=== PATIENT | female | born 1965 | race African-American/Black ===

== ENCOUNTER 2019-06-23 15:28 | Emergency (ER) | payer MEDICARE, MEDICAID ==
[2019-06-23 16:29] LABS: #Basophils 0.1 thou/uL (0.0-0.2); #Eosinphils 0.1 thou/uL (0.0-0.7); #Lymphocytes 3.5 thou/uL (1.20-3.40); #Monocytes 0.5 thou/uL (0.11-0.59); #Neutrophils 5.4 thou/uL (1.40-6.50); %Basophils 0.7 % (0.0-1.0); %Eosinophils 0.7 % (0.0-10.0); %Lymphocytes 36.9 % (21.0-51.0); %Monocytes 4.8 % (0.0-10.0); %Neutrophils 56.8 % (42.0-75.0); Hemoglobin 11.9 g/dL (12.0-16.0); Mean Corpuscular HGB CONC 33.1 g/dL (32.0-36.0); Mean Corpuscular Hemoglobin 27.3 pg (27.0-31.0); Mean Corpuscular Volume 82.4 fL (78.0-98.0); Mean Platelet Volume 8.8 fL (7.4-10.4); Platelet Count 237 thou/uL (130-400); RBC Distribution Width 14.2 % (11.5-14.5); Red Blood Cell (RBC) Count 4.35 mill/uL (4.20-5.40); White Blood Cell (WBC) Count 9.5 thou/uL (4.8-10.8)
[2019-06-23 16:50] LABS: ALT (SGPT) 8 U/L (8-55); AST (SGOT) 15 U/L (5-34); Albumin 3.6 g/dL (3.5-5.0); Alkaline Phosphatase 84 U/L (40-110); Anion Gap 11 mmol/L (10-20); BUN (Urea Nitrogen) 18 mg/dL (9.8-20.1); Bilirubin, Total 0.2 mg/dL (0.2-1.2); Calc. Creatinine Clearance 0 mL/min (70-130); Calcium 8.8 mg/dL (7.8-10.44); Carbon Dioxide 28 mmol/L (22-29); Chloride 105 mmol/L (98-107); Estimated GFR-MDRD 32; Globulin 3.1 g/dL (2.4-3.5); Glucose 99 mg/dL (70-105); Potassium 3.9 mmol/L (3.5-5.1); Protein, Total 6.7 g/dL (6.0-8.3); Sodium 140 mmol/L (136-145)
[2019-06-23] MEDS ORDERED: Ondansetron ODT 4 MG TAB ONE (18:08)
--- NOTE | 2019-06-23 18:31 | RAD ---
RADIOGRAPH CHEST 1 VIEW: DATE: 06/23/2019 HISTORY: 53-year-old female status post syncope. Concern for aspiration. FINDINGS: There are no airspace densities, pulmonary edema, pneumothorax, or cardiomegaly. The lateral costophr enic angles are sharp. IMPRESSION: No acute cardiopulmonary findings.
== END 2019-06-23 19:27 | disposition home or self-care (01) ==
LOC: ERS 15:28 → EEVIPCON 15:28 → ERS 19:27
DX: R55 Syncope and collapse (principal); N18.9 Chronic kidney disease, unspecified; R11.0 Nausea; I50.9 Heart failure, unspecified; K21.9 Gastro-esophageal reflux disease without esophagitis; F41.9 Anxiety disorder, unspecified; F32.9 Major depressive disorder, single episode, unspecified; F17.210 Nicotine dependence, cigarettes, uncomplicated
CPT/HCPCS: 36415; 71045; 80053; 83880; 84443; 84484; 85025; 93005; 94760; Q0162

== ENCOUNTER 2019-06-24 10:49 | Observation (INO) | payer MEDICARE, MEDICAID ==
[~2019-06-24 10:49] MED LIST: Iopamidol 370 76% 100 ML VIAL ONE
--- NOTE | 2019-06-24 11:03 | CT ---
Exam: CT brain PROVIDED CLINICAL HISTORY: Difficulty speaking COMPARISON: None FINDINGS: The ventricular system is normal in size and morphology. No evidence for intracranial hemorrhage or mass effect. The extracranial soft tissues and osseous structures demonstrate no evidence for an acute abnormality. IMPRESSION: No evidence for intracranial hemorrhage or mass effect. Findings communicated to Dr. Cruz 11:00 AM .
[2019-06-24 11:21] LABS: #Basophils 0.1 thou/uL (0.0-0.2); #Eosinphils 0.1 thou/uL (0.0-0.7); #Lymphocytes 3.5 thou/uL (1.20-3.40); #Monocytes 0.6 thou/uL (0.11-0.59); #Neutrophils 3.9 thou/uL (1.40-6.50); %Basophils 1.3 % (0.0-1.0); %Eosinophils 1.1 % (0.0-10.0); %Lymphocytes 42.9 % (21.0-51.0); %Monocytes 7.6 % (0.0-10.0); %Neutrophils 47.1 % (42.0-75.0); Hemoglobin 12.8 g/dL (12.0-16.0); Mean Corpuscular HGB CONC 32.3 g/dL (32.0-36.0); Mean Corpuscular Hemoglobin 26.5 pg (27.0-31.0); Mean Platelet Volume 8.8 fL (7.4-10.4); Platelet Count 259 thou/uL (130-400); RBC Distribution Width 14.4 % (11.5-14.5); Red Blood Cell (RBC) Count 4.84 mill/uL (4.20-5.40); White Blood Cell (WBC) Count 8.2 thou/uL (4.8-10.8)
[2019-06-24] MEDS ORDERED: Lorazepam 2 MG/ML VIAL ONE (11:28)
[2019-06-24] MEDS ORDERED: Metoclopramide HCl 10 MG/2 ML VIAL ONE (11:28)
--- NOTE | 2019-06-24 11:30 | CT ---
CT angiogram head CT angiogram neck: 06/24/2019 COMPARISON: None HISTORY: Difficulty speaking TECHNIQUE: Axial CT imaging obtained at 1.25 mm intervals from the lung apices through the vertex wit h IV contrast using CT angiogram protocol. Coronal and sagittal 3-D reformatted imaging obtained. FINDINGS: The imaged lung apices appear unremarkable. The visualized paranasal sinuses/mastoid air cells are well aerated. The retroantral fat and the parapharyngeal fat is clear bilaterally. The parotid glands and the subma ndibular glands are grossly unremarkable. Limited assessment of the aerodigestive tract demonstrates no discrete lesion. The thyroid gland is heterogeneous and mildly enlarged, demonstratin g a nodular internal architecture, not optimally assessed via CT. No lymphadenopathy is noted within the neck. The origin of the innominate artery, right common carotid artery, right subclavian artery, left commo n carotid artery, and left subclavian artery appears unremarkable. Bilateral vertebral artery origins are unremarkable. Bilateral vertebral arteries are unremarkable. On the basis of NASCET criteria, no hemodynamically significant stenosis is noted involving the inter nal carotid artery or common carotid artery on either side. The basilar artery and its branches appear patent. No saccular aneurysm, high-grade stenosis, or vasc ular occlusion is evident within the posterior circulation. The ICA bifurcation, the M1 segment, the A1 segment, the MCA bifurcation, the distal MCA branches, an d the distal SHABBIR branches appear unremarkable bilaterally. No saccular aneurysm, high-grade stenosis, or vascular occlusion is seen involving the anterior circulation on either side. Review of the osseous structures demonstrates mild degenerative change at the atlantoaxial interspace . No worrisome lytic or blastic bone lesion. IMPRESSION: CT angiogram of the head demonstrates no evidence for central intra-arterial thrombus. On the basis of NASCET criteria, no hemodynamically significant stenosis is seen involving the arterial structures of the neck. Results called to Dr. Cruz 11:25 AM 06/24/2019
--- NOTE | 2019-06-24 11:31 | RAD ---
Portable frontal chest radiograph: 06/24/2019 COMPARISON: 06/23/2019 HISTORY: Syncope FINDINGS: No pneumothorax or pleural fluid. No focal consolidation or alveolar edema. A round focal area of prominent increased density overlies the midline lower thoracic spine. A histor y of prior kyphoplasty. IMPRESSION: No radiographic evidence of acute cardiopulmonary disease.
[2019-06-24 11:34] LABS: Acetaminophen Less than 6.0 mcg/mL (10.0-30.0); Alcohol Less than 10 mg/dL (Less than 10); Salicylate Less than 8.0 mg/dL (15.0-30.0)
[2019-06-24 11:40] LABS: ALT (SGPT) 9 U/L (8-55); AST (SGOT) 16 U/L (5-34); Albumin 3.9 g/dL (3.5-5.0); Alkaline Phosphatase 90 U/L (40-110); Anion Gap 14 mmol/L (10-20); BUN (Urea Nitrogen) 20 mg/dL (9.8-20.1); Bilirubin, Total 0.2 mg/dL (0.2-1.2); CK (CPK) 132 U/L (29-168); Calc. Creatinine Clearance 0 mL/min (70-130); Calcium 9.2 mg/dL (7.8-10.44); Carbon Dioxide 33 mmol/L (22-29); Chloride 102 mmol/L (98-107); Estimated GFR-MDRD 30; Globulin 3.3 g/dL (2.4-3.5); Glucose 85 mg/dL (70-105); Lipase 90 U/L (8-78); Potassium 3.6 mmol/L (3.5-5.1); Protein, Total 7.2 g/dL (6.0-8.3); Sodium 145 mmol/L (136-145)
[2019-06-24] MEDS ORDERED: Dexamethasone 10 MG/ML VIAL ONE (12:19)
[2019-06-24 12:37] LABS: Bilirubin Negative (Negative); Blood, Urine Negative (Negative); Clarity Clear (Clear); Glucose, Urine (Dipstick) Normal (Negative); Leukocyte Negative Leu/uL (Negative); Nitrite Negative (Negative); Protein, Urine (Dipstick) Negative (Neg-Trace); Urobilinogen Normal mg/dL (Less than 2)
[2019-06-24 12:46] LABS: Amphetamine Not Detected (NotDetected); Barbiturates Screen Not Detected (NotDetected); Benzodiazepine Screen Not Detected (NotDetected); Cocaine Metabolite Screen Not Detected (NotDetected); Medtox Control Line Valid? VALID (VALID); Medtox Reader # READER 4; Methadone Not Detected (NotDetected); Methamphetamine Not Detected (NotDetected); Opiate Screen Detected (NotDetected); Oxycodone Screen Not Detected (NotDetected); Phencyclidine (PCP) Not Detected (NotDetected); THC/Cannabinoid Screen Not Detected (NotDetected); Tricyclic Screen Not Detected (NotDetected)
[2019-06-24] MEDS ORDERED: Aspirin Chewable 81 MG TAB ONE (13:46)
--- NOTE | 2019-06-24 14:00 | PDOC.FPRHP ---
- History of Present Illness Chief Complaint: stroke-like sxs History of Present Illness: 53yo AAF with h/o migraines, CHF, CKD, anxiety presents for stroke-like sxs. States awoke this morning, unsure of exact time but began to experience a migraine. Pain radiating to the top of her head. This then progressed to vision changes described as a "ball in the left eye field," but could not better describe. She then began to talk to her sister on the phone at approx 0915 and began to experience "full body fatigue" with worsening weakness on the R-side, slurred speech. Came into the ED for eval. Denies any fever/chills, recent illness, n/v, abd pain. After meds in ED, DUGAN resolved. Stroke-like sxs seem to come and go per pt. She also endorses hoarseness that is new. ED Course: ASA, ativan 2mg, reglan 10mg, dexadron 10. Resolution of sxs. - Allergies/Adverse Reactions Allergies Allergy/AdvReac Type Severity Reaction Status Date / Time doxycycline Allergy Verified 06/24/19 15:52 Penicillins Allergy Verified 06/24/19 15:52 - Home Medications Medication Instructions Recorded Confirmed Type ALPRAZolam [Alprazolam] 1 tablet PO BID 06/24/19 06/24/19 History Albuterol Sulfate [Proair HFA] 1 puff PO Q4HR PRN 06/24/19 06/24/19 History Cholecalciferol (Vitamin D3) 1 capsule PO Q7DAYS 06/24/19 06/24/19 History [Vitamin D3] Ferrous Sulfate 7.4 ml PO DAILY 06/24/19 06/24/19 History Furosemide [Lasix] 40 mg PO BID 06/24/19 06/24/19 History Gabapentin 1 capsule PO HS 06/24/19 06/24/19 History Gabapentin [Neurontin] 1 capsule PO HS 06/24/19 06/24/19 History HYDROcodone Bit/APAP 10/325 [[place] 1 tab PO Q6HR PRN 06/24/19 06/24/19 History 10/325] Levothyroxine Sodium 1 tablet PO DAILY 06/24/19 06/24/19 History Linaclotide [Linzess] 1 capsule PO DAILY 06/24/19 06/24/19 History Ondansetron [Zofran ODT] 1 tablet PO Q6HR PRN 06/24/19 06/24/19 History Pantoprazole [Protonix] 40 mg PO BID 06/24/19 06/24/19 History Potassium Chloride 15 ml PO DAILY 06/24/19 06/24/19 History Promethazine HCl/Codeine 1 teaspoon PO BID PRN 06/24/19 06/24/19 History [Prometh-Codein 6.25-10 mg/5 ml] Raloxifene HCl 1 tablet PO DAILY 06/24/19 06/24/19 History Tramadol HCl [Tramadol HCl ER] 300 mg PO DAILY PRN 06/24/19 06/24/19 History Zolpidem Tartrate 10 mg PO HS 06/24/19 06/24/19 History Zolpidem Tartrate [Ambien] 10 mg PO HS 06/24/19 06/24/19 History hydrOXYzine HCl [Hydroxyzine HCl] 1 tablet PO BID 06/24/19 06/24/19 History hydrOXYzine Pamoate [Hydroxyzine 25 mg PO TID PRN 06/24/19 06/24/19 History Pamoate] - History PMHx:CHF, CKDII, GERD, Ovarian/endometrial cancer, anxiety/depression, PNA in Nov, neuropathy PSHx: L rotator cuff, tone, hyst, c/s x4 FHx: Dad - CHF, DMII, CKD. Mom HTN, CVA, [place] Social: 1/2ppd for years, no etOH, no illicits. - Review of Systems ROS unobtainable: other (drowsy 2/2 medications in ED) General: denies: fever/chills, weight/appetite/sleep changes Eyes: reports: vision changes (per HPI) ENT: denies: nasal congestion, rhinorrhea Respiratory: denies: cough, congestion, shortness of breath Cardiovascular: denies: chest pain, palpitation, edema Gastrointestinal: denies: nausea, vomiting, diarrhea, constipation, abdominal pain Genitourinary: denies: incontinence, dysuria Neurological: reports: weakness, other (per HPI) Psychological: reports: anxiety, depression - Vital signs BP: 110/77 HR: 69 RR: 16 Tmax: 98 Pox: 96% on RA Wt: 65kg - Physical Exam Constitutional: NAD, well developed, other (sleepy, talks in hoarse voice, opens eyes to touch. A/O x3.) HEENT: PERRLA, EOMI, conjunctiva clear, grossly normal vision, grossly normal hearing, MMM Neck: supple, trachea midline Heart: RRR, normal S1/S2, no murmurs/rubs/gallops, pulses present, no edema Lungs: CTAB, no respiratory distress, good air movement, no rales/rhonchi, no wheezing Abdomen: soft, non-tender, bowel sounds present -Musculoskeletal: 5/5 strength BL UE, 4+/5 strength RLE, 5/5 LLE Neurological: no focal deficit, CN II-XII intact, normal sensation -Neurological: No dysmetria but slow finger to nose Skin: no rash/lesions Heme/Lymphatic: no unusual bruising or bleeding Psychiatric: good judgment and insight, intact recent and remote memory FMR H&P: Results - Labs Result Diagrams: 06/24/19 11:01 06/24/19 11:01 Lab results: WBC 8.2 thou/uL (4.8-10.8) 06/24/19 11:01 Hgb 12.8 g/dL (12.0-16.0) 06/24/19 11:01 Hct 39.7 % (36.0-47.0) 06/24/19 11:01 MCV 82.0 fL (78.0-98.0) 06/24/19 11:01 Plt Count 259 thou/uL (130-400) 06/24/19 11:01 Neutrophils % 47.1 % (42.0-75.0) 06/24/19 11:01 Sodium 145 mmol/L (136-145) 06/24/19 11:01 Potassium 3.6 mmol/L (3.5-5.1) 06/24/19 11:01 Chloride 102 mmol/L (98-107) 06/24/19 11:01 Carbon Dioxide 33 mmol/L (22-29) H 06/24/19 11:01 BUN 20 mg/dL (9.8-20.1) 06/24/19 11:01 Creatinine 2.06 mg/dL (0.6-1.1) H 06/24/19 11:01 Glucose 85 mg/dL (70-105) 06/24/19 11:01 Calcium 9.2 mg/dL (7.8-10.44) 06/24/19 11:01 Total Bilirubin 0.2 mg/dL (0.2-1.2) 06/24/19 11:01 AST 16 U/L (5-34) 06/24/19 11:01 ALT 9 U/L (8-55) 06/24/19 11:01 Alkaline Phosphatase 90 U/L (40-110) 06/24/19 11:01 Creatine Kinase 132 U/L (29-168) 06/24/19 11:01 B-Natriuretic Peptide 57.5 pg/mL (0-100) 06/24/19 11:01 Serum Total Protein 7.2 g/dL (6.0-8.3) 06/24/19 11:01 Albumin 3.9 g/dL (3.5-5.0) 06/24/19 11:01 Lipase 90 U/L (8-78) H 06/24/19 11:01 Urine Ketones Negative mg/dL (Negative) 06/24/19 12:21 Urine Blood Negative (Negative) 06/24/19 12:21 Urine Nitrite Negative (Negative) 06/24/19 12:21 Ur Leukocyte Esterase Negative Yanick/uL (Negative) 06/24/19 12:21 - Radiology Interpretation Chest x-ray Status: report reviewed by me (no acute CPP) CT scan - head Status: report reviewed by me (CTA head neck WNL) FMR H&P: A/P - Problem List (1) Migraine Current Visit: Yes Status: Acute Code(s): G43.909 - MIGRAINE, UNSP, NOT INTRACTABLE, WITHOUT STATUS MIGRAINOSUS Qualifiers: Migraine type: other Status migrainosus presence: without status migrainosus (2) TIA (transient ischemic attack) Current Visit: Yes Status: Suspected Code(s): G45.9 - TRANSIENT CEREBRAL ISCHEMIC ATTACK, UNSPECIFIED (3) CHF (congestive heart failure) Current Visit: Yes Status: Chronic Code(s): I50.9 - HEART FAILURE, UNSPECIFIED (4) CKD (chronic kidney disease) Current Visit: Yes Status: Chronic Code(s): N18.9 - CHRONIC KIDNEY DISEASE, UNSPECIFIED (5) GERD (gastroesophageal reflux disease) Current Visit: Yes Status: Chronic Code(s): K21.9 - GASTRO-ESOPHAGEAL REFLUX DISEASE WITHOUT ESOPHAGITIS - Plan 53yo AAF with h/o migraines, CHF, CKD, anxiety presents for stroke-like sxs #TIA r/o vs complex migraine vs anxiety - Sxs of slurred speech with associated migraine - Sxs are transient in nature - CT and CTA negative - TSH, lytes, trop, negative - MRI, ECHO pending - Lipids, A1C pending - ASA, atorva - PT/OT/Speech, neuro checks - low suspicion for CVA, likely complex migraine vs anxiety, will monitor #Worsening CKD vs EMELI - Known CKDII, Cr 2 with GFR 30 today - worsening CKD vs EMELI, will monitor - Lytes stable #CHF - cont home lasix, no acute exacerbation, monitor - will order Echo #GERD - cont protonix #Chronic pain - cont tramadol, gabapentin, tylenol prn - hold norco #Depression/anxiety - vistaril TID prn - monitor sxs IVF: SL Code: DNR - spoke with Pt at beside Diet: HH DVT: SCDs PCP: REGINA Lira in [place] Dispo: Admit to stroke obs for cva r/o. CT and CTA negative. MRI pending. [facility] medical management. Anticipate hospitalization <48 hours. FMR H&P: Upper Level - Plan Date/Time: 06/24/19 1400 I, Saw Ray MD, have evaluated this patient and agree with findings/ plan as outlined by spring internship resident. Pertinent changes/additions are listed here. TIA vs Complex Migraine - Unremarkable workup in ED including CT and CTA head. - MRI to be ordered - Supportive Care CHF - Restart home medications - Ordering ECHO All other chronic conditions restarted and medications to be restarted as appropriate PCP: [facility] CODE STATUS: DNAR Disposition: Stable, will admit for Observation for CVA workup. Addendum - Attending - Attending Attestation Date/Time: 06/24/19 5837 I personally evaluated the patient and discussed the management with Dr. Bonner/ Cory. I agree with the History, Examination, Assessment and Plan documented above with any addition or exceptions noted below. Patient with history of migraine disorder presenting after onset of typical migraine this morning associated with some slurred speech and difficult with word finding. Patient also endorses some subjective weakness on the right side of her body. Patient had CT and CTA performed which did not reveal any acute perfusion deficit. Patient will be placed an observation status for TIA rule out. Continue aspirin and Statin at this time. Will further risk stratify. There is also concern about polypharmacy as this patient has multiple controlled substance rx. A review of her state monitoring report reveals multiple controlled substances being filled by multiple providers in the [place] and [place] areas. Will currently scale back all psychiatric acting medications and controlled substances to see if this will clear her mentation.
[2019-06-24] MEDS ORDERED: Ondansetron ODT 4 MG TAB SL PRN (15:01)
[2019-06-24] MEDS ORDERED: Ondansetron PF 4 MG/2 ML Vial IVP PRN ×2 (15:01→15:22)
[2019-06-24] MEDS ORDERED: Enoxaparin Sodium 30 MG/0.3 ML SYRINGE SC SCH (15:22)
[2019-06-24] MEDS ORDERED: Acetaminophen 325 MG TAB PO PRN (15:22)
[2019-06-24] MEDS ORDERED: hydrOXYzine Pamoate 25 mg Capsule PO PRN (15:22)
[2019-06-24 15:27] VITALS: BMI 23.1
[2019-06-24] MEDS ORDERED: Melatonin 3 MG TAB PO PRN (15:37)
[2019-06-24] MEDS ORDERED: Nicotine 14 MG PATCH TD SCH (16:00)
[2019-06-24 16:02] LABS: Hemoglobin A1c 5.1 % (4.0-6.0)
[2019-06-24] MEDS ORDERED: PROVENTIL INHALER 6.7 G (200 INHALATIONS) INH PRN (17:55)
[2019-06-24] MEDS: traMADol HCl 50 MG TAB PO PRN (18:59)
[2019-06-24] MEDS: Furosemide 20 MG TAB PO SCH (20:59)
[2019-06-24] MEDS: ALPRAZolam 1 MG TAB PO SCH (20:59)
[2019-06-24] MEDS ORDERED: Atorvastatin Calcium 40 MG TAB PO SCH (21:00)
[2019-06-24] MEDS: Ondansetron ODT 4 MG TAB PO PRN (21:01)
[2019-06-24] MEDS ORDERED: Senokot 8.6 MG TAB PO PRN (23:41)
[2019-06-24] MEDS ORDERED: SUMAtriptan Succinate 50 MG TAB PO SCH (23:45)
[2019-06-25 05:46] LABS: Anion Gap 11 mmol/L (10-20); BUN (Urea Nitrogen) 25 mg/dL (9.8-20.1); Calc. Creatinine Clearance 33 mL/min (70-130); Calcium 9.4 mg/dL (7.8-10.44); Carbon Dioxide 33 mmol/L (22-29); Cardiac Risk 2.3 (Less than 4.5); Chloride 100 mmol/L (98-107); Cholesterol 252 mg/dl (< 200 Desired); Estimated GFR-MDRD 32; Glucose 108 mg/dL (70-105); HDL Cholesterol 110 mg/dL (>60 Neg Risk); LDL Cholesterol, Calculated 129 mg/dL; Potassium 3.3 mmol/L (3.5-5.1); Sodium 141 mmol/L (136-145); Triglycerides 66 mg/dL (Less than 150)
[2019-06-25] MEDS ORDERED: Levothyroxine Sodium 50 MCG TAB PO SCH (06:00)
[2019-06-25] MEDS: traMADol HCl 50 MG TAB PO PRN ×2 (06:22→10:28)
[2019-06-25] MEDS: Ondansetron ODT 4 MG TAB PO PRN ×2 (06:22→13:42)
[2019-06-25] MEDS ORDERED: Potassium Chloride 20 MEQ TAB PO SCH (07:00)
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
[2019-06-25] MEDS: ALPRAZolam 1 MG TAB PO SCH (08:37)
[2019-06-25] MEDS: Furosemide 20 MG TAB PO SCH (08:38)
[2019-06-25] MEDS ORDERED: Gabapentin 400 MG CAP PO SCH (09:00)
[2019-06-25] MEDS ORDERED: Aspirin 81 mg Enteric Coated Tablet PO SCH (09:00)
[2019-06-25] MEDS ORDERED: Docusate 100 MG CAP PO SCH (09:00)
[2019-06-25] MEDS ORDERED: Enoxaparin Sodium 30 MG/0.3 ML SYRINGE SC SCH (09:00)
[2019-06-25] MEDS ORDERED: LINACLOTIDE 290 MCG PO SCH (09:00)
--- NOTE | 2019-06-25 10:19 | MRI ---
Brain MRI without contrast: 06/25/2019 COMPARISON: None HISTORY: Transient ischemic attack TECHNIQUE: Multiplanar multisequence MR imaging of the brain obtained without contrast FINDINGS: The diffusion weighted imaging demonstrates no evidence for acute infarction. The axial gradient echo imaging demonstrates no evidence for intracranial hemorrhage. Anterior midline dural calcification is noted. Imaged paranasal sinuses/mastoid air cells demonstrate normal signal intensity. Arterial flow voids at the axial level of the skull base unremarkable on the T2-weighted imaging. IMPRESSION: Unremarkable brain MRI.
[2019-06-25] MEDS ORDERED: Polyethylene Glycol 3350 17 GM Packet PO PRN (10:55)
[2019-06-25] MEDS ORDERED: Metoclopramide HCl 10 MG/2 ML VIAL IVP SCH (11:00)
[2019-06-25] MEDS ORDERED: diphenhydrAMINE 50 MG/ML VIAL IVP SCH (11:00)
[2019-06-25 11:36] VITALS: TEMP 98.9
[2019-06-25 13:48] VITALS: BP 104/60
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
== END 2019-06-25 14:53 | disposition home or self-care (01) ==
LOC: ERS 10:49 → 2SE 14:53 → EEVIPCON 14:53
PROVIDERS: ADMIT Student in an Organized Health Care Education/Training Program; ATTEND Student in an Organized Health Care Education/Training Program
DX: G43.909 Migraine, unspecified, not intractable, without status migrainosus (principal); R47.81 Slurred speech; H53.8 Other visual disturbances; R53.1 Weakness; F41.9 Anxiety disorder, unspecified; N18.3 Chronic kidney disease, stage 3 (moderate); I50.9 Heart failure, unspecified; K21.9 Gastro-esophageal reflux disease without esophagitis; F32.9 Major depressive disorder, single episode, unspecified; G62.9 Polyneuropathy, unspecified; F17.210 Nicotine dependence, cigarettes, uncomplicated; G89.29 Other chronic pain; Z66 Do not resuscitate; Z79.899 Other long term (current) drug therapy; Z88.0 Allergy status to penicillin; Z88.1 Allergy status to other antibiotic agents
CPT/HCPCS: 36415; 36416; 70450; 70496; 70498; 70551; 71045; 80048; 80053; 80061; 80306; 80307; 81003; 82550; 83036; 83690; 83735; 83880; 84443; 84484; 85025; 93005; 93306; 96365; 96375; 96376; G0378; J1100; J1200; J2060; J2765; Q0162; Q0177; Q9967